=== PATIENT | female | born 1930 | race Caucasian/White ===

== ENCOUNTER 2017-04-25 07:57 | Inpatient (IN) | payer OTHER ==
[2017-04-25] VITALS (11 sets, daily range): BP systolic 125–183; BP diastolic 54–90
[~2017-04-25] VITALS: Ht 167.6 cm; Wt 70.8 kg
[~2017-04-25 07:57] MED LIST: ACETAMINOPHEN650 M5; ADULT ONE DAI200 MCG PO; ASPIRIN EC81 M1 PO; CARVEDILOL6.25 MG; CIPROFLOXACIN500 M1 PO; CO Q-1010 MG; CO Q-10100 MG PO; COMPAZINE10 M1 PO; CRESTOR5 MG PO; FIBERCON625 M1 PO; FISH OIL PO; FLAGYL500 MG PO; HYDROCODON-ACE1 EA11 PO; LASIX 20 MG TAB20 MG; NEUROPATHY SUPPORT PO; NIASPAN 500 MG500 M1 PO; NITROGLYCERIN0.4 MG PO; PLAVIX 75 MG TA75 M1 PO; SYNTHROID88 MCG PO; TOPROL XL25 MG; VITAMIN D PO; VITAMIN D1000 UNI1 PO; VITAMIN E PO; VITAMIND; ZOFRAN ODT4 MG SUBLING
[2017-04-25] MEDS ORDERED: CARVEDILOL6.25 MG (08:14)
[2017-04-25 08:32] LABS: ABSOLUTE BASOPHILS 0.1 thou/uL (0.0-0.2); ABSOLUTE EOSINOPHILS 0.3 thou/uL (0.0-0.7); ABSOLUTE LYMPHOCYTES 1.1 thou/uL (0.8-5.3); ABSOLUTE MONOCYTES 0.5 thou/uL (0.0-1.2); ABSOLUTE NEUTROPHILS 3.6 thou/uL (1.6-8.1); EOSINOPHILS 5.9 %; HEMATOCRIT 42.2 % (37.0-47.0); HEMOGLOBIN 14.1 gm/dL (12.0-15.0); LYMPHOCYTES 19.9 %; MCH 31.3 pg (26.0-34.0); MCHC 33.4 g/dL (28.0-37.0); MCV 93.8 fL (80.0-100.0); MONOCYTES 9.5 %; MPV 8.9 fl. (7.2-11.1); NUCLEATED RBCS 0 /100WBC; PLATELET COUNT* 269 thou/uL (150-400); POLYS 63.7 %; RDW-CV 14.5 % (10.5-14.5); WBC 5.7 thou/uL (4.0-11.0)
[2017-04-25 08:43] LABS: ANION GAP 6 mmol/L (7-16); BUN 21 mg/dL (7-18); CALCIUM 9.6 mg/dL (8.5-10.1); CHLORIDE 107 mmol/L (98-107); CO2 30 mmol/L (21-32); CREATININE 1.4 mg/dL (0.6-1.3); GLUCOSE 101 mg/dL (70-99); SODIUM 143 mmol/L (136-145)
[2017-04-25 08:56] LABS: ALBUMIN 3.6 g/dL (3.4-5.0); ALKALINE PHOSPHATASE 100 U/L (46-116); NT-PRO BRAIN NAT PEPTIDE 743 pg/mL (<300); SGOT 20 U/L (15-37); SGPT 26 U/L (30-65); TOTAL BILIRUBIN 0.5 mg/dL (<0.1-1.0); TOTAL PROTEIN 6.6 g/dL (6.4-8.2); TROPONIN-I LEVEL <0.06 ng/mL (<0.06)
[2017-04-25 12:42] LABS: CHOLESTEROL 241 mg/dL (<200); HDL CHOLESTEROL 61 mg/dL (>40); LDL CHOLESTEROL 148 mg/dL (<100); TRIGLYCERIDE 163 mg/dL (<150); VLDL 33 mg/dL (<40)
[2017-04-25 12:43] LABS: SERUM ASSESSMENT Clear
--- NOTE | 2017-04-25 18:52 | NUR ---
VSS, ASSUMED CARE OF FROM PLANT OPERATIONS COORDINATOR, ASSESSMENT PERFORMED AND CHARTED, FALL PRECAUTION IN PLACE AND CATH SITE IN RIGHT GRION HAS DRY BLOOD BUT NO NOTED HEMOTOMA, PT IS TRACING SB ON THE MONITOR, PT IS ON RA AND CAN GET UP AT 1915. WILL FOLLOW WITH PLAN OF CARE.
[2017-04-26] VITALS: BP 104/56
--- NOTE | 2017-04-26 03:34 | NUR ---
PT A/OX4, SB WITH 1D, RA, R-GROIN CATH SITE FREE FROM ACTIVE BLEEDING/SWELLING/HEMATOMA; LINE DRAWN ON DRESSING FOR MONITORING DRESSING NOTED LIGHT PINK COLOR TO GAUZE WHICH DAY RN STATED HAD NOT CHANGED SINCE HE REC PT FROM PSYCHOLOGY DEPARTMENT CHAIR, DAY-RN STATED POST CATH-VS ARE COMPLETED, UP SBA TO BATHROOM AFTER BEDREST LIFTED AFTER 1930, PT REPORTED NO SOA, PAIN TREATED X1 FOR CHRONIC NECK PAIN, 0300 EKG COMPLETED PER ORDERS, FALL PRECAUTIONS IN PLACE, PT USING CALL LIGHT TO VOICE NEEDS, MEDS/ASSESSMENT PER CHARTING, HOURLY ROUNDING IN PLACE, VSS, WILL CONT TO MONITOR.
[2017-04-26 04:00] VITALS: BP 140/59
[2017-04-26 05:29] LABS: HEMOGLOBIN 12.7 gm/dL (12.0-15.0); MCHC 32.6 g/dL (28.0-37.0); MPV 9.1 fl. (7.2-11.1); RBC 4.11 mil/uL (4.20-5.00); RDW-CV 14.6 % (10.5-14.5); WBC 5.7 thou/uL (4.0-11.0)
[2017-04-26 06:01] LABS: CALCIUM 8.9 mg/dL (8.5-10.1); CREATININE 1.2 mg/dL (0.6-1.3); POTASSIUM 4.3 mmol/L (3.5-5.1); TROPONIN-I LEVEL 0.16 ng/mL (<0.06)
--- NOTE | 2017-04-26 07:25 | NUR ---
CHANGE OF SHIFT AND BEDSIDE REPORT GIVEN ASSUMED PATIENT CARE PATIENT SEEN AT BEDSIDE, ASLEEP
[2017-04-26 08:00] VITALS: BP 167/103
[2017-04-26 10:00] VITALS: BP 167/103
[2017-04-26 10:44] VITALS: BP 167/103
--- NOTE | 2017-04-26 14:00 | NUR ---
PATIENT REPORTS BLOOD AT R GROIN SITE BANDAID SATURATED WITH BLOOD AND PERIAREA COVERED WITH BLOOD, MODERATE AMT AREA CLEANED AND SM SPOT OF FRESH BLOOD OOZING FROM SITE PRESSURE HELD AND NEW 2X2 DRSG AND OPSITE APPLIED PATIENT SAID SHE HAD A COUGHING EPISODE EARLIER, INSTRUCTED TO HOLD SITE WITH PRESSURE IF SHE NEEDED TO COUGH AGAIN AND NOTIFY NURSE IF FURTHER BLEEDING HEART DR NOTIFIED AND WILL CONTINUE TO MONITOR DR RAI TO COME BY AND CHECK SITE AND PATIENT LATER IN THE DAY
--- NOTE | 2017-04-26 17:37 | EKG ---
[place] [address] ELECTROCARDIOGRAM REPORT Name: ALFREDA RAMSEY Room: [address] ADM IN M.R.#: [id number] Admission: 04/25/17 Attend Phys: Abel Guerrero MD Discharge: Date of : 32 Report #: [id number] THIS REPORT FOR: //name// [facility] ED Test Date: 2017-04-25 Test Time: 08:03:37 Pat Name: ALFREDA ROXY Department: Room: [facility] Gender: F Rehabilitation Psychologist: ROBERTH : 1930 Requested By: Kamron Vincent Order Number: [id number] Sylvester MD: Rm Rodriguez Measurements Intervals [place] Rate: 61 P: -77 NH: 276 QRS: -21 QRSD: 110 T: 44 QT: 441 QTc: 445 Interpretive Statements Sinus or ectopic atrial rhythm Prolonged NH interval Inferior infarct, old Anteroseptal infarct, age indeterminate Compared to ECG 11/09/2012 08:24:59 Ectopic atrial rhythm now present First degree AV block now present Sinus bradycardia no longer present Myocardial infarct finding still present Electronically Signed On 04-26-2017 17:37:07 CHIEF POWER DISPATCHER by Rm Rodriguez [email or web address] <ELECTRONICALLY SIGNED> By: Rm Rodriguez MD, FACC 04/26/17 1737 0803 0803 Rm Rodriguez MD, FACC /EPI
--- NOTE | 2017-04-26 17:40 | EKG ---
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28 : 1930 Requested By: Diana Carty Order Number: [id number] MD: Rm Rodriguez Measurements Intervals [place] Rate: 48 P: 57 CA: 238 QRS: 2 QRSD: 115 T: 89 QT: 435 QTc: 389 Interpretive Statements Sinus bradycardia Prolonged CA interval Nonspecific intraventricular conduction delay Inferior infarct, old Anteroseptal infarct, old Compared to ECG 11/09/2012 08:24:59 First degree AV block now present Intraventricular conduction delay now present Myocardial infarct finding still present Electronically Signed On 04-26-2017 17:40:17 APARTMENT RENTAL CLERK by Rm Rodriguez [email or web address] <ELECTRONICALLY SIGNED> By: Rm Rodriguez MD, FACC 04/26/17 1740 1445 1445 Rm Rodriguez MD, FAC /EPI
--- NOTE | 2017-04-26 17:43 | EKG ---
[place] [address] ELECTROCARDIOGRAM REPORT Name: ALFREDA RAMSEY Room: [address] ADM IN M.R.#: [id number] Admission: 04/25/17 Attend Phys: Abel Guerrero MD Discharge: Date of : 31 Report #: [id number] THIS REPORT FOR: //name// [facility] Test Date: 2017-04-26 Test Time: 02:58:41 Pat Name: ALFREDA PUTNavi Department: Room: [facility] Gender: F Customer Resource Specialist: KAT : 1930 Requested By: Kamron Vincent Order Number: [id number] Sylvester MD: Rm Rodriguez Measurements Intervals [place] Rate: 53 P: 0 NC: 304 QRS: 3 QRSD: 113 T: 74 QT: 470 QTc: 442 Interpretive Statements Sinus rhythm Prolonged NC interval Low voltage Anteroseptal infarct, age indeterminate Compared to ECG 11/09/2012 08:24:59 First degree AV block now present Sinus bradycardia no longer present Myocardial infarct finding still present Electronically Signed On 04-26-2017 17:43:06 SALES PERFORMANCE MANAGER by Rm Rodriguez [email or web address] <ELECTRONICALLY SIGNED> By: Rm Rodriguez MD, FACC 04/26/17 1743 0258 0258 Rm Rodriguez MD, [facility] /EPI
--- NOTE | 2017-04-26 18:21 | NUR ---
PATIENT DCD TO HOME IV AND HEART MONITOR REMOVED PERSONAL BELONGINGS RETURNED ASSISTED OUT VIA WC GOOD CONDITION TO WAITING CAR
--- NOTE | 2017-04-27 16:31 | D ---
[address] [address] DISCHARGE SUMMARY Name: ALFREDA RAMSEY Room: [address] IN M.R.#: [id number] Admission: 04/25/17 Attend Phys: Abel Guerrero MD Discharge: 04/26/17 Date of : 31 Report #: [id number] THIS REPORT FOR: //name// CC: Bryan Guerrero DATE OF SERVICE: 04/26/2017 FINAL DISCHARGE DIAGNOSES: 1. Unstable angina. 2. History of coronary artery disease, status post remote stenting of the right coronary artery. 3. Peripheral vascular disease. 4. Hypertension. 5. Hyperlipoproteinemia. PROCEDURES: 04/25/2017 -- left heart catheterization, selective coronary arteriography and percutaneous coronary intervention with deployment of 2 drug-eluting stents at the sites of 90% proximal and 75% mid right coronary stenosis with 10% residual narrowing following stent deployment. The patient is a very pleasant active 86-year-old female who presented with recurrent chest pain suggestive of her prior anginal syndrome. She is several years status post stenting of the right coronary artery. There is underlying hypertension, hyperlipoproteinemia, peripheral vascular disease and a mild myopathy. She underwent cardiac catheterization on 04/25/2017, which revealed sequential 90% and 75% proximal and mid right coronary stenoses. I then deployed 2 drug-eluting stents at those sites respectively with 10% residual narrowing following stent deployment and TERRENCE 3 flow of the distal vessel. The patient did well postprocedurally, and there was good hemostasis at the right femoral site of catheterization. She ambulated in the hallways without difficulty. The patient was discharged to home on the following medications: Aspirin 81 mg daily, FiberCon 625 mg daily, carvedilol 6.25 mg b.i.d., Plavix 75 mg daily with 600 mg dose given periprocedurally, hydrocodone/acetaminophen 1 tablet as needed for pain, L-Thyroxine 88 mcg daily, multivitamin and folic acid daily, niacin 500 mg b.i.d., p.r.n. sublingual nitroglycerin, fish oil 1 capsule daily, Coenzyme Q10 at 100 mg daily, vitamin E 1 tablet daily, Neuropathy Support 2 [place] [address] DISCHARGE SUMMARY Name: ALFREDA RAMSEY Room: [address]#: [id number] Admission: 04/25/17 Attend Phys: Abel Guerrero MD Discharge: 04/26/17 Date of : 31 Report #: [id number] The patient is scheduled to return to see me in the office on 05/18/2017 at 10:20. <ELECTRONICALLY SIGNED> By: Kamron Vincent MD, [facility] 04/27/17 1631 1745 1911Jolucio Vincent MD, FACC /nt
--- NOTE | 2017-04-29 11:20 | CARD ---
[address] [address] CARDIAC CATH REPORT Name: ROXYALFREDA M Room: [address] IN ..#: [id number] Admission: 04/25/17 Attend Phys: Abel Guerrero MD Discharge: 04/26/17 Date of : 31 Report #: [id number] THIS REPORT FOR: //name// APPROVED REPORT Patient Details Patient Status: ED Room #: The patient is a 86 year-old female Event Personnel Kamron Vincent Powder Mill Operator, Rani De Anda RN Classroom Teacher, Carlos Alvares (R) Monitor, Venita Barcenas Scrub Procedures Performed GUDELIA Place w/wo Plasty Single RCA left heart catheterization left ventriculography and selective coronary arteriography Indication Unstable angina Previous Procedures/Diagnoses Previous PCI, Previous SC Admission/Lab Medications/Medications given during procedure Aspirin, Platelet Aff. Inhib., Angiomax bolus and infusion Procedure Narrative The patient was brought electively to the Cardiac Catheterization Laboratory and was prepped and draped in a sterile manner. The right femoral was infiltrated with 1% Lidocaine subcutaneous anesthesia. A [place] 6 FR sheath was inserted into the Right Femoral Artery. Coronary angiography was performed using coronary diagnostic catheters. The right coronary system was accessed and visualized with a Diagnostic JR4 catheter. The left coronary system was accessed and visualized with a Diagnostic JL4 catheter. The left ventricle was accessed and visualized with a Diagnostic Straight Pig catheter. Left ventricular/Aortic Valve gradient assessed . Left ventriculogram was performed in LEWIS projection. Pre-demployment femoral angiogram was performed . Closure device was deployed with a 6 Fr Angioseal. The patient tolerated the procedure well and there were no complications associated with the procedure[place] [address] CARDIAC CATH REPORT Name: ALFREDA RAMSEY Room: [address]#: [id number] Admission: 04/25/17 Attend Phys: Abel Guerrero MD Discharge: 04/26/17 Date of : 31 Report #: [id number] Sedation start time: 13:16 Case end Time: 14:17 Versed 2 mg Fluoro Time: 13.8 minutes Dose: DAP 15447 cGycm2 1275 mGy Contrast Type and Amount: Visipaque 240 ml Coronary Angiography The patient's coronary anatomy is right dominant. Diagnostic Cath Left Main 0% narrowing LAD 75% proximal and 80% mid LAD in-stent restenosis Circumflex 30% mid vessel narrowing Right Coronary 90% proximal and 70% mid right coronary stenosis, this being a dominant vessel Left Ventriculography The left ventricular ejection fraction is estimated to be 40%. Left ventricular wall motion abnormalities are present. There is no mitral insufficiency. Left ventriculography revealed anteroapical akinesis with an estimated ejection fraction of 40% IVUS Intravascular Ultrasound was performed on the proximal right coronary artery vessel. IVUS Findings NC Trek RX 2.75 X 8 Hemodynamics The aortic pressure is 168/77 mmHg with a mean of 113 mmHg. The left ventricular pressure is 164/-2 mmHg with a mean of mmHg. The left ventricular end diastolic pressure is 10 mmHg. PCI Technique Lesion Anticoagulation was achieved with Angiomax. Patient was preloaded with Angiomax IV 10 ml. Percutaneous coronary intervention was performed on the proximal right coronary artery. The lesion stenosis prior to intervention was 90% with TERRENCE 3 flow. A 6F JR 4.0 Guide Catheter was used to engage the ostium. A IG: ProwaterFlex 180CM Interventional Guidewire was used to cross the lesion. BALLOON DILATION A Balloon catheter Trek RX 2.5 X 12 [place] [address] CARDIAC CATH REPORT Name: ALFREDA RAMSEY Room: [address]#: [id number] Admission: 04/25/17 Attend Phys: Abel Guerrero MD Discharge: 04/26/17 Date of : 31 Report #: [id number] 14.00atm for 16seconds. STENT DEPLOYMENT A drug-eluting stent Xience Alpine RX 2.75X12 was inserted and inflated up to 12.00atm for 16seconds. Additional Inflation: 16.00atm for 11seconds. Final angiography reveals 10 % stenosis with TERRENCE 3 flow. PCI Technique Lesion Percutaneous coronary intervention was performed on the proximal right coronary artery. BALLOON DILATION A Balloon catheter NC Trek RX 2.75 X 8 was inserted and inflated up to 14.00atm for 15seconds. Additional Inflation: 18.00atm for 12seconds. STENT DEPLOYMENT A drug-eluting stent Xience Alpine RX 3.0 X 12 was inserted and inflated up to 12.00atm for 12seconds. Additional Inflation: 16.00atm for 13seconds. Additional Inflation: 16.00atm for 11seconds. POST STENT DEPLOYMENT BALLOON DILATION A Balloon catheter NC Trek RX 3.0 X 12 was inserted and inflated up to 16.00atm for 11seconds. Additional Inflation: 17.00atm for 13seconds. Additional Inflation: 18.00atm for 11seconds. PCI Technique Lesion 2 Percutaneous Coronary Intervention was performed on the mid right coronary artery. The lesion stenosis prior to intervention was 75% with TERRENCE 3 flow. Stent Deployment A drug-eluting stent Xience Alpine RX 3.0 X 12 was inserted and inflated up to 18atm for 15seconds. Final angiography reveals 10 % stenosis with TERRENCE 3 flow. Conclusion #1 significant coronary artery disease characterized by the following: A 75% proximal and 80% mid LAD stenoses, the latter within a stent, [place] [address] CARDIAC CATH REPORT Name: ALFREDA RAMSEY Room: [address] IN [facility].#: [id number] Admission: 04/25/17 Attend Phys: Abel Guerrero MD Discharge: 04/26/17 Date of : 31 Report #: [id number] B 30 % narrowing of the midportion the nondominant circumflex, C dominant right coronary artery with tandem 90% proximal and 75% mid vessel stenosis #2 mild systemic systolic hypertension #3 successful percutaneous coronary intervention with deployment of sequential drug-eluting stents at the sites of 90% proximal and 75% mid right coronary stenosis with 10% residual narrowing at both sites following stent deployment and TERRENCE-3 flow the distal vessel. #4 moderate reduction in global left ventricular systolic function, estimated ejection fraction of 40% with anteroapical akinesis. Recommendations Cardiac Risk Reduction Program Aggressive Medical Therapy Medications Administered Aspirin (any) <ELECTRONICALLY SIGNED> By: Kamron Vincent MD, FACC 04/29/17 1120 1120 1120Jolucio Vincent MD, FACC /INF
== END 2017-04-26 18:20 | disposition home or self-care (01) | DRG 247 ==
LOC: M.ERS 07:57 → M.2W 10:11 → M.TBA-ER 10:11 → M.2W 17:35
PROVIDERS: Internal Medicine; Personal Emergency Response Attendant; ADMIT Internal Medicine
PROC: 027035Z Dilation of Coronary Artery, One Artery with Two Drug-eluting Intraluminal Devices, Percutaneous Approach (ICD-10-PCS; principal; 2017-04-25)
PROC: 4A023N7 Measurement of Cardiac Sampling and Pressure, Left Heart, Percutaneous Approach (ICD-10-PCS; principal; 2017-04-25)
PROC: B2151ZZ Fluoroscopy of Left Heart using Low Osmolar Contrast (ICD-10-PCS; principal; 2017-04-25)
PROC: B2111ZZ Fluoroscopy of Multiple Coronary Arteries using Low Osmolar Contrast (ICD-10-PCS; principal; 2017-04-25)
DX: I25.110 Atherosclerotic heart disease of native coronary artery with unstable angina pectoris (principal); I50.32 Chronic diastolic (congestive) heart failure; I13.0 Hypertensive heart and chronic kidney disease with heart failure and stage 1 through stage 4 chronic kidney disease, or unspecified chronic kidney disease; I50.22 Chronic systolic (congestive) heart failure; J98.11 Atelectasis; I73.9 Peripheral vascular disease, unspecified; E78.5 Hyperlipidemia, unspecified; M19.90 Unspecified osteoarthritis, unspecified site; E03.9 Hypothyroidism, unspecified; N18.3 Chronic kidney disease, stage 3 (moderate); M79.7 Fibromyalgia; Z88.8 Allergy status to other drugs, medicaments and biological substances; Z79.899 Other long term (current) drug therapy

== ENCOUNTER 2017-07-03 12:44 | Inpatient (IN) | payer OTHER ==
[~2017-07-03] VITALS: Ht 167.6 cm; Wt 64.9 kg
[2017-07-03 12:48] VITALS: BP 157/64
[2017-07-03] MEDS ORDERED: MAG GLYCINATE100 MG PO (13:13)
[2017-07-03] MEDS ORDERED: IMDUR 30 MG TAB30 M1 PO (13:13)
[2017-07-03 13:14] LABS: ABSOLUTE BASOPHILS 0.1 thou/uL (0.0-0.2); ABSOLUTE EOSINOPHILS 0.2 thou/uL (0.0-0.7); ABSOLUTE LYMPHOCYTES 1.7 thou/uL (0.8-5.3); ABSOLUTE MONOCYTES 0.6 thou/uL (0.0-1.2); BASOPHILS 1.2 %; HEMATOCRIT 44.2 % (37.0-47.0); HEMOGLOBIN 14.7 gm/dL (12.0-15.0); LYMPHOCYTES 29.9 %; MCHC 33.2 g/dL (28.0-37.0); MCV 93.4 fL (80.0-100.0); MONOCYTES 10.8 %; MPV 8.6 fl. (7.2-11.1); NUCLEATED RBCS 0 /100WBC; PLATELET COUNT* 247 thou/uL (150-400); POLYS 54.1 %; RBC 4.73 mil/uL (4.20-5.00); RDW-CV 13.3 % (10.5-14.5); WBC 5.6 thou/uL (4.0-11.0)
[2017-07-03] MEDS ORDERED: STOOL SOFT-STI1 EACH PO (13:14)
[2017-07-03] MEDS ORDERED: PROBIOTIC1 EAC1 PO (13:14)
[2017-07-03] MEDS ORDERED: FIBER CHOICE C1.5 G1 PO (13:15)
[2017-07-03 13:25] LABS: ANION GAP 4 mmol/L (7-16); BUN 21 mg/dL (7-18); CALCIUM 9.7 mg/dL (8.5-10.1); CHLORIDE 106 mmol/L (98-107); CO2 33 mmol/L (21-32); CREATININE 1.2 mg/dL (0.6-1.3); GLUCOSE 72 mg/dL (70-99); SODIUM 143 mmol/L (136-145)
[2017-07-03 13:27] LABS: APTT 27.1 Seconds (25.0-31.3); INR 1.1; PROTIME 11.1 Seconds (9.20-11.50)
[2017-07-03 13:36] LABS: ALBUMIN 3.5 g/dL (3.4-5.0); ALKALINE PHOSPHATASE 83 U/L (46-116); LIPASE 76 U/L (73-393); NT-PRO BRAIN NAT PEPTIDE 1028 pg/mL (<300); SGOT 18 U/L (15-37); SGPT 21 U/L (30-65); TOTAL BILIRUBIN 0.4 mg/dL (<0.1-1.0); TOTAL PROTEIN 6.5 g/dL (6.4-8.2); TROPONIN-I LEVEL <0.06 ng/mL (<0.06)
--- NOTE | 2017-07-03 13:59 | NUR ---
PT GIVEN APPLESAUCE AT THIS TIME PER REQUEST. EXPLAINED THE WAIT TIMES TO GET MOVED UP TO THE FLOOR FOR ADMIT. PT VERBALIZED UNDERSTANDING
[2017-07-03 15:54] VITALS: BP 128/71
[2017-07-03 16:11] VITALS: BP 138/80
--- NOTE | 2017-07-03 17:25 | NUR ---
PT ADMITTED TO UNIT AROUND 1700 PT IS ALERT AND ORIENTED X 4 PT DENIES CHEST PAIN PT STATES SHE HAS SLIGHT SOA AFTER WALKING NOT NOTICEABLE, PT IS UP AD JUN PT IS NOT A FALL RISK, PT HAS CARDIOLOGY CONSULT CALLED PHYSICIAN AND OBTAINED DIET ORDER PT WILL BE NPO AT MIDNIGHT PENDING CARDIOLOGY CONSULT, PT IS ON RA, PT IS SR PAC ON THE MONITOR, WILL CONTINUE TO MONITOR
[2017-07-03 20:00] VITALS: BP 113/73
[2017-07-04] VITALS (18 sets, daily range): BP systolic 92–162; BP diastolic 45–74
--- NOTE | 2017-07-04 04:41 | NUR ---
PT ALERT ORIENTED. UP AD JUN IN ROOM. TELEMETRY SHOWS SR PACS. PT STATED SHE HAD PAIN CHRONIC FOR 20+ YRS IN NECK AND LEGS. DR LUNDBERG NOTIFIED. HYDROCODONE ORDERED. TOWEL ROLLED UP FOR SUPPORT OF NECK. PT STATED SHE COULD NOT SLEEP AT 0230. DR LUNDBERG NOTIFIED ORDER FOR TEMAZEPAM OBTAINED AND GIVEN. BED ALARM ON. PT RESTING QUIETLY.
--- NOTE | 2017-07-04 05:46 | NUR ---
NPO SINCE [place] EXCEPT FOR SIPS WITH MEDS.
[2017-07-04 07:00] LABS: ABSOLUTE EOSINOPHILS 0.2 thou/uL (0.0-0.7); ABSOLUTE LYMPHOCYTES 1.5 thou/uL (0.8-5.3); ABSOLUTE MONOCYTES 0.4 thou/uL (0.0-1.2); ABSOLUTE NEUTROPHILS 2.3 thou/uL (1.6-8.1); EOSINOPHILS 4.5 %; HEMATOCRIT 42.7 % (37.0-47.0); HEMOGLOBIN 14.4 gm/dL (12.0-15.0); LYMPHOCYTES 33.4 %; MCH 31.5 pg (26.0-34.0); MCHC 33.7 g/dL (28.0-37.0); MCV 93.3 fL (80.0-100.0); MONOCYTES 9.9 %; MPV 8.2 fl. (7.2-11.1); NUCLEATED RBCS 0 /100WBC; PLATELET COUNT* 217 thou/uL (150-400); POLYS 51.2 %; RBC 4.58 mil/uL (4.20-5.00); RDW-CV 13.4 % (10.5-14.5); WBC 4.5 thou/uL (4.0-11.0)
[2017-07-04 07:15] LABS: CALCIUM 9.6 mg/dL (8.5-10.1); CREATININE 1.2 mg/dL (0.6-1.3); POTASSIUM 4.4 mmol/L (3.5-5.1)
--- NOTE | 2017-07-04 08:00 | NUR ---
ASSUMED PT. CARE AND RECEIVED REPORT AT 0730. PT A/OX4, VSS, MONITOR ON TRACING SR 1ST PAC. PT. DENIES CURRENT CP, HOWEVER SHE HAD A 1-2 MINUTES EPSIDOE EARLIER THIS MORNING OF CP. C/O GENERALIZED CHRONIC FIBROMYALGIA PAIN. FULL ASSESSMENT COMPLETED, REFER TO CHARTING. PT. UP IN ROOM, STEADY ON FEET. KNIT GOODS WASHER KALE INTO SEE, ANTICIPATE CARDIAC CATH TODAY AFTER DR. RAI ASSESSES. PT. REMAINS NPO. WILL CONTINUE WITH PLAN OF CARE.
--- NOTE | 2017-07-04 12:19 | NUR ---
Pt out of the room, CM to f/u later
--- NOTE | 2017-07-04 14:46 | EKG ---
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 : 1930 Requested By: Diana Carty Order Number: [id number] MD: Kamron Vincent Measurements Intervals [place] Rate: 57 P: 42 CO: 217 QRS: -13 QRSD: 109 T: 81 QT: 444 QTc: 433 Interpretive Statements Sinus rhythm Atrial premature complexes Borderline prolonged [place] interval Inferior infarct, age indeterminate possible Anteroseptal infarct, age indeterminate Compared to ECG 04/26/2017 02:58:41 Atrial premature complex(es) now present Myocardial infarct finding still present Electronically Signed On 07-04-2017 14:46:31 CDT by Kamron Vincent [email or web address] <ELECTRONICALLY SIGNED> By: Kamron Vincent MD, FACC 07/04/17 1446 1250 1250 Kamron Vincent MD, FAC /EPI
--- NOTE | 2017-07-04 14:47 | EKG ---
[place] [address] ELECTROCARDIOGRAM REPORT Name: ALFREDA RAMSEY Room: [address] ADM IN M.R.#: [id number] Admission: 07/04/17 Attend Phys: Mejia Mejia MD Discharge: Date of : 31 Report #: [id number] THIS REPORT FOR: //name// [facility] ED Test Date: 2017-07-03 Test Time: 14:48:41 Pat Name: ALFREDA RIVASNavi Department: Room: [facility] Gender: F Global Regulatory Lead: LESLEY : 1930 Requested By: Diana Carty Order Number: [id number] MD: Kamron Vincent Measurements Intervals [place] Rate: 56 P: 28 NV: 241 QRS: -9 QRSD: 112 T: 94 QT: 432 QTc: 417 Interpretive Statements Sinus rhythm Atrial premature complexes Prolonged [place] interval Inferior infarct, old Anteroseptal infarct, age indeterminate Compared to ECG 04/26/2017 02:58:41 Atrial premature complex(es) now present Myocardial infarct finding still present Electronically Signed On 07-04-2017 14:47:36 CDT by Kamron Vincent [email or web address] <ELECTRONICALLY SIGNED> By: Kamron Vincent MD, FAC 07/04/17 1447 1448 1448 Kamron Vincent MD, FAC /EPI
--- NOTE | 2017-07-04 14:54 | EKG ---
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 : 1930 Requested By: Kamron Vincent Order Number: [id number] Sylvester MD: Kamron Vincent Measurements Intervals [place] Rate: 39 P: 40 NM: 234 QRS: -2 QRSD: 114 T: 98 QT: 518 QTc: 418 Interpretive Statements Sinus bradycardia Atrial premature complex Borderline prolonged [place] interval Inferior infarct, age indeterminate Probable anteroseptal infarct Compared to ECG 04/26/2017 02:58:41 Atrial premature complex(es) now present Sinus rhythm no longer present Myocardial infarct finding still present Electronically Signed On 07-04-2017 14:54:36 CDT by Kamron Vincent [email or web address] <ELECTRONICALLY SIGNED> By: Kamron Vincent MD, FAC 07/04/17 1454 1333 1333 Kamron Vincent MD, FACC /EPI
--- NOTE | 2017-07-04 15:17 | CARD ---
[address] [address] CARDIAC CATH REPORT Name: ALFREDA RAMSEY Room: [address] IN ..#: [id number] Admission: 07/04/17 Attend Phys: Mejia Mejia MD Discharge: Date of : 31 Report #: [id number] THIS REPORT FOR: //name// APPROVED REPORT Study performed: 07/04/2017 11:12:12 Patient Details Patient Status: In-Patient Room #: The patient is a 87 year-old female Event Personnel Kamron Vincent Career Specialist, Susan Parish Rock Picker, Venita Barcenas Monitor, Mari Guevara RTR Scrub, Rani De Anda RN Rock Picker Procedures Performed Art Access - R femoral artery* , Left Heart Catheterization, Selective Right and Left Coronary Angiography left heart catheterization, PTCA with Stenting Indication Unstable angina Risk Factors Hypercholesterolemia, Hypertension Previous Procedures/Diagnoses Previous PCI, Previous ND Admission/Lab Medications/Medications given during procedure Angiomax bolus and infusion Procedure Narrative The patient was brought electively to the Cardiac Catheterization Laboratory and was prepped and draped in a sterile manner. The right femoral was infiltrated with 1% Lidocaine subcutaneous anesthesia. A [place] 6 FR sheath was inserted into the right femoral artery. Coronary angiography was performed using coronary diagnostic catheters. The right coronary system was accessed and visualized with a Diagnostic 6fr JR 4 catheter. The left coronary system was accessed and visualized with a Diagnostic 6fr JL 4 catheter. The left ventricle was accessed and visualized with a Diagnostic pigtail catheter. Left ventricular/Aortic Valve gradient assessed via catheter pullback. Pre-demployment femoral [place] [address] CARDIAC CATH REPORT Name: ALFREDA RAMSEY Room: [address] IN [facility]#: [id number] Admission: 07/04/17 Attend Phys: Mejia Mejia MD Discharge: Date of : 31 Report #: [id number] Closure device was deployed with a 6 Fr Angioseal STS 6Fr. The patient tolerated the procedure well and there were no complications associated with the procedure. There was no hematoma. Intraoperative Conscious Sedation Sedation start time: 11:50 Case end Time: 12:50 Versed 1 mg Fluoro Time: 13.3 minutes Dose: DAP 004034 cGycm2 1542.35 mGy Contrast Type and Amount: Visipaque 280 ml Diagnostic Cath Left Main 0% narrowing LAD 80% tubular proximal stenosis with 90% mid vessel in-stent restenosis Circumflex 30% mid vessel narrowing Right Coronary Dominant vessel with widely patent proximal stents, 30% mid vessel narrowing and 50% narrowing of the midportion of the posterior descending branch Left Ventriculography Left Ventriculography was not performed. Hemodynamics The aortic pressure is 141/59 mmHg with a mean of mmHg. The left ventricular pressure is 117/0 mmHg with a mean of mmHg. The left ventricular end diastolic pressure is 6 mmHg. There was no gradient across the aortic valve upon pullback. PCI Technique Lesion Anticoagulation was achieved with Angiomax. Percutaneous coronary intervention was performed on the mid left anterior descending artery segment. The lesion stenosis prior to intervention was 90% with TERRENCE 3 flow. A 6F XB LAD 3.5 Guide Catheter was used to engage the LCA ostium. A IG: ProwaterFlex 180CM Interventional Guidewire was used to cross the lesion. BALLOON DILATION A Balloon catheter Mini Trek RX 2.0 X 12 was inserted and inflated up to 14.00atm for 10seconds. Additional Inflation: 14.00atm for 14seconds. Additional Inflation: 14.00atm for 17seconds. 14 SANDY x 13 [place] [address] CARDIAC CATH REPORT Name: ALFREDA RAMSEY Room: [address]#: [id number] Admission: 07/04/17 Attend Phys: Mejia Mejia MD Discharge: Date of : 31 Report #: [id number] A drug-eluting stent Xience Alpine RX 2.25X23 was inserted and inflated up to 6.00atm for 14seconds. Additional Inflation: 8.00atm for 9seconds. Additional Inflation: 10.00atm for 13seconds. Final angiography reveals 10 % stenosis with TERRENCE 3 flow. PCI Technique Lesion 2 Percutaneous Coronary Intervention was performed on the proximal left anterior descending artery segment. The lesion stenosis prior to intervention was 80% with TERRENCE 3 flow. A 6F XB LAD 3.5 Guide Catheter was used to engage the LCA ostium. A IG: ProwaterFlex 180CM Interventional Guidewire was used to cross the lesion. Balloon Dilation A Balloon catheter NC Trek RX 2.75X15 was inserted and inflated up to 14.00atm for 10seconds. Repeat angiography revealed the following post-dilatation results: 30% narrowing. Additional Inflation: 15.00atm for 10seconds. Stent Deployment A drug-eluting stent Xience Alpine RX 2.75X28 was inserted and inflated up to 12.00atm for 9seconds. Additional Inflation: 15.00atm for 18seconds. Post Stent Deployment Balloon Dilation A Balloon catheter NC Trek RX 2.75 X 12 was inserted and inflated up to 16.00atm for 9seconds. Additional Inflation: 15.00atm for 13seconds. Additional Inflation: 17atm for 9seconds. Final angiography reveals 10 % stenosis with TERRENCE 3 flow. PCI Technique Lesion 4 Percutaneous Coronary Intervention was performed on the proximal left anterior descending artery segment. Conclusion #1 significant multivessel coronary artery disease characterized by the following: A 80% tubular proximal and 90% mid vessel in-stent restenosis of the left anterior descending coronary artery B 30% narrowing of the midportion of the nondominant circumflex C large dominant right coronary artery with widely patent proximal stents 30% mid vessel narrowing 40% distal narrowing and 50% [place] [address] CARDIAC CATH REPORT Name: ALFREDA RAMSEY Room: [address] IN M.R.#: [id number] Admission: 07/04/17 Attend Phys: Mejia Mejia MD Discharge: Date of : 31 Report #: [id number] narrowing of one of the posterior descending branches of the distal right coronary artery #2 normal left-sided hemodynamics study #3 successful percutaneous coronary intervention with deployment of sequential drug-eluting stents at the sites of 80% proximal and 90% mid LAD stenosis with 10% residual narrowing at both sites following stent deployment and TERRENCE-3 flow to the distal vessel. Recommendations Daily ASA with Plavix for at least one year Aggressive Medical Therapy Medications Administered Clopidogrel Diagnostic Cath Approved by: Kamron Vincent MD Date/Time: 07/04/17 at 1515 hrs. <ELECTRONICALLY SIGNED> By: Kamron Vincent MD, FAC 07/04/17 1516 151 1516Kamron Vincent MD, FACC /INF
--- NOTE | 2017-07-04 18:49 | NUR ---
PT. COMPLETED CARDIAC CATH WITH 2 STENTS PLACED. RETURNED TO ROOM AT APPROX. 1330. PT. HAD IRREGULAR JOSELIN RHYTHM UPON RETURN TO UNIT. DR. RAI NOTIFIED, PT. DID SIMILAR DURING THE CATH WELL. EKG OBTAINED AND DR. RAI UP TO ROOM TO ASSESS. NO NEW ORDERS AT THIS TIME, JUST TO MONITOR. PT. RHYTHM RANGED FROM 32-80'S FOR FIRST FEW HOURS AFTER RECOVERY BEFORE LEVELING OUT IN MID 80'S AND STAYING THERE. PT. CURRENTLY UP IN ROOM AD JUN, TOLERATING ACTIVITY WELL. RIGHT GROIN DRESSING REMAINS C/D/I. IVF'S INFUSING PER ORDERS. HOURLY ROUNDING COMPLETED THROUGH OUT THE DAY FOR PT. SAFETY.
[2017-07-05] VITALS (7 sets, daily range): BP systolic 92–172; BP diastolic 51–84
[2017-07-05 05:30] LABS: HEMATOCRIT 40.4 % (37.0-47.0); HEMOGLOBIN 13.6 gm/dL (12.0-15.0); MCH 30.9 pg (26.0-34.0); MCHC 33.5 g/dL (28.0-37.0); MCV 92.3 fL (80.0-100.0); MPV 9.1 fl. (7.2-11.1); RBC 4.38 mil/uL (4.20-5.00); RDW-CV 13.6 % (10.5-14.5)
--- NOTE | 2017-07-05 05:40 | NUR ---
PT CARE ASSUMED AFTER REPORT. ASSESSMENT COMPLETE. SR/1ST DEGREE ON MONITOR. IVF INFUSING. PRN PAIN MEDICAION GIVEN PER PT REQUEST WITH ADEQUATE RELIEF. UP AD JUN WITH STEADY GAIT. R GROIN CATH SITE DRESSING C/D/I. NO HEMATOMA OR BRUISING NOTED. CALL LIGHT IN REACH. BED IN LOWEST POSITION. PROGRESSING TOWARDS GOLAS.
[2017-07-05 05:51] LABS: ALBUMIN 3.1 g/dL (3.4-5.0); ALKALINE PHOSPHATASE 68 U/L (46-116); ANION GAP 7 mmol/L (7-16); BUN 16 mg/dL (7-18); CALCIUM 8.9 mg/dL (8.5-10.1); CHLORIDE 107 mmol/L (98-107); CHOLESTEROL 208 mg/dL (<200); CO2 27 mmol/L (21-32); CREATININE 1.1 mg/dL (0.6-1.3); GLUCOSE 95 mg/dL (70-99); HDL CHOLESTEROL 54 mg/dL (>40); LDL CHOLESTEROL 130 mg/dL (<100); POTASSIUM 3.9 mmol/L (3.5-5.1); SGOT 28 U/L (15-37); SGPT 19 U/L (30-65); SODIUM 141 mmol/L (136-145); TC:HDL 3.9 Ratio (Not establshd); TOTAL BILIRUBIN 0.6 mg/dL (<0.1-1.0); TOTAL PROTEIN 5.4 g/dL (6.4-8.2); TRIGLYCERIDE 120 mg/dL (<150); VLDL 24 mg/dL (<40)
[2017-07-05 05:55] LABS: SERUM ASSESSMENT Clear
[2017-07-05 05:56] LABS: TROPONIN-I LEVEL 1.85 ng/mL (<0.06)
--- NOTE | 2017-07-05 10:36 | NUR ---
RECEIVED REPORT. ASSUMED CARE OF PT AT 0730. PT A&OX4, LOOKING FORWARD TO GOING HOME TODAY. VSS. O2 SAT 98% ON RA. MEDICATION COORDINATOR IN PLACE TRACING SR WITH 1ST DEGREE AV BLOCK AND PAC'S. AM ASSESSMENT AND VITALS COMPLETED CHARTED. PT DENIES CHEST PAIN. PT REPORTS NECK AND BACK PAIN AT 04/20 - PT STATES "I ALWAYS HURT, I HAVE FIBROMYALGIA". PT REFUSING PAIN MEDICATION AT THIS TIME, STATES SHE WILL NOTIFY NURSE WHEN SHE NEEDS PAIN MEDS. IV PATENT AND INFUSING IVF. PT EATING AND DRINKING WITHOUT ISSUE. RIGHT GROIN CATH SITE SOFT, NON-TENDER; DRESSING REMOVED BY CARDIOLOGY NURSE AND REPLACED WITH BANDAID. PLAN IS TO DC THIS AFTERNOON. PT INFORMED OF PLAN - COMMUNICATES UNDERSTANDING. LOW FALL PRECAUTIONS ARE IN PLACE. CALL LIGHT IS WITHIN REACH, WCTM. ALL NEEDS MET AT THIS TIME.
--- NOTE | 2017-07-05 13:44 | NUR ---
DISCHARGE ORDERS RECIEVED. DISCHARGE COMPLETED DOCUMENTED. DISCHARGE SUMMARY AND CARE NOTES GONE OVER WITH PT. PT COMMUNICATES UNDERSTANDING. SCRIPT GIVEN. IV AND MONEY LAUNDERING INVESTIGATOR REMOVED. ALL BELONGINGS GATHERED AND SENT WITH THE PT. VSS AT TIME OF DC. PT EATING AND DRINKING WITHOUT ISSUE. PT LEFT UNIT IN WC WITH NURSING STAFF. PT LEFT HOSPITAL IN CAR WITH DAUGHTER.
--- NOTE | 2017-07-05 15:04 | CON ---
[address] [address] CONSULTATION Name: ALFREDA RAMSEY Room: [address] IN M.R.#: [id number] Admission: 07/04/17 Attend Phys: Mejia Mejia MD Discharge: 07/05/17 Date of : 31 Report #: [id number] THIS REPORT FOR: //name// CC: Mejia Gautam [place] DATE OF SERVICE: 07/04/2017 LOCATION: The patient in room 203. HISTORY OF PRESENT ILLNESS: The patient is a very pleasant 87-year-old female with complex coronary disease, status post stenting of the right coronary artery in April. Recently, she has noted recrudescence of dyspnea and chest fullness or tightness with exertion. She was noted to have a moderately severe mid LAD lesion at that time, which was not approached in the initial setting. The symptoms have been progressive over the last 2 weeks with increased dyspnea and chest tightness, compatible with a pattern of ischemia, which is unstable. MEDICATIONS: Have included aspirin 81 mg daily, clopidogrel 75 mg daily, calcium, vitamin D, nonspecific analgesic agents, p.r.n. sublingual nitroglycerin, L-thyroxine, niacin, multivitamins, isosorbide 30 mg daily, and magnesium. PAST MEDICAL HISTORY: Remarkable for hypothyroidism, arthritis, coronary disease, and mild renal insufficiency. SOCIAL HISTORY: The patient is a nonsmoker. REVIEW OF SYSTEMS: Remarkable for the following: CARDIAC: She notes chest discomfort and dyspnea, latter occurring more frequently with less activity. MUSCULOSKELETAL: She notes mild arthritic complaints. Remainder is unremarkable. PHYSICAL EXAMINATION: GENERAL: Reveals an alert, elderly female, in no acute distress. VITAL SIGNS: Blood pressure 130/70. The pulse rate is 74. Respirations are 18 per minute. NECK: Jugular venous pressure is normal. Carotids are 1-2+. CHEST: Clear. CARDIOVASCULAR: Reveals normal first and second heart sounds with a soft systolic ejection type murmur. ABDOMEN: Soft. EXTREMITIES: Without edema with intact femoral, [place] [address] CONSULTATION Name: ALFREDA RAMSEY Room: [address] IN [facility].#: [id number] Admission: 07/04/17 Attend Phys: Mejia Mejia MD Discharge: 07/05/17 Date of : 31 Report #: [id number] LABORATORY DATA: EKG reveals sinus bradycardia, first-degree AV block, possible anteroseptal scar and nonspecific ST-T alterations. IMPRESSION: 1. Coronary artery disease, status post remote anteroapical infarction and more recent percutaneous coronary intervention to the right coronary artery. 2. Multivessel coronary disease as defined in 04/2017. 3. Hypothyroidism. 4. Mild arthritic complaints. 5. History of mild renal insufficiency. RECOMMENDATIONS: Given the aforementioned clinical scenario with an increase in dyspnea and chest tightness of late, I would recommend recatheterization with attention to the previously stented right coronary artery in the mid and distal LAD, which were not approached in 04/2017. This has been discussed with the patient and we will plan to proceed with cardiac catheterization on 07/04/2017. <ELECTRONICALLY SIGNED> By: Kamron Vincent MD, [facility] 07/05/17 1504 0939 [id number] Vincent MD, FACC /nt
--- NOTE | 2017-07-05 15:05 | D ---
[address] [address] DISCHARGE SUMMARY Name: ALFREDA RAMSEY Room: [address] IN M.R.#: [id number] Admission: 07/04/17 Attend Phys: Mejia Mejia MD Discharge: 07/05/17 Date of : 31 Report #: [id number] THIS REPORT FOR: //name// CC: Mejia Gautam [place] DATE OF SERVICE: 07/05/2017 FINAL DISCHARGE DIAGNOSES: 1. Unstable angina. 2. Coronary artery disease status post remote myocardial infarction. 3. Status post stenting of the right coronary artery in April with stenting of the left anterior descending on 07/04/2017. 4. History of mild renal insufficiency. 5. Degenerative joint disease. PROCEDURES: 07/04/2017-left heart catheterization, selective coronary arteriography, and percutaneous coronary intervention with deployment of two drug-eluting stents in the proximal and mid left anterior descending coronary artery. The patient is a very pleasant 87-year-old female with history of coronary artery disease and remote anteroapical infarction. In April, she presented with unstable angina and I placed two drug-eluting stents in the proximal right coronary artery with a good angiographic result. She had done well until several weeks ago when she began to note recurrence of chest pain similar to her prior ischemic syndrome with an increase in frequency and severity with concomitant dyspnea. In this setting, I elected to perform recatheterization on 07/04/2017, which revealed widely patent right coronary artery stents. She had the previously demonstrated 80% proximal and 90% mid LAD stenosis, the latter being in-stent restenosis. I deployed 2 drug-eluting stents, one 2.75 x 28 mm Xience Alpine in the proximal LAD and a 2.25 x 23 Xience Alpine drug-eluting stent in the mid LAD with 10% residual narrowing at both sites following stent deployment. The patient had transitory slow flow in the seed laboratory technician with confucianist of TERRENCE 3 flow by the end with a minimal increase in troponin to 1.85. Her pain was completely remitted by of the procedure and she ambulated in the hallways without difficulty with good hemostasis at the right femoral site of catheterization. Laboratory data on 07/05/2017, revealed a hemoglobin of 13.6, white blood cell count of 6000 with 209,000 platelets. Sodium 141, potassium 3.9, BUN 16, creatinine 1.1, and GFR 47. Troponin increased minimally [place] 1[place]85[place] [address] DISCHARGE SUMMARY Name: ALFREDA RAMSEY Roseline Room: [address] IN [facility].#: [id number] Admission: 07/04/17 Attend Phys: Mejia Mejia MD Discharge: 07/05/17 Date of : 31 Report #: [id number] The patient walked in the hallways without difficulty. She was given an additional dose of Plavix periprocedurally. The patient was discharged to home on the following medications: Aspirin 81 mg daily, FiberCon one tablet daily, cholecalciferol 1000 units daily, clopidogrel or Plavix 75 mg daily with additional 300 mg given periprocedurally, Imdur 15 mg daily, lactobacillus or probiotic one capsule daily, L-thyroxine 88 mcg daily, magnesium glycinate 400 mg b.i.d., one multivitamin tablet with folic acid daily, niacin 500 mg b.i.d., stool softener, Sennoside/docusate 1 tablet daily; Coenzyme Q10 100 mg daily, fish oil one tablet daily, p.r.n. sublingual nitroglycerin for recurrent chest discomfort. The patient is scheduled to return to see me in followup in 2 to 3 weeks. Thus, she is discharged to home in stable condition on the aforementioned medications with followup as iterated above. <ELECTRONICALLY SIGNED> By: Kamron Vincent MD, FACC 07/05/17 1505 0905 1013Jolucio Vincent MD, FAC /nt
--- NOTE | 2017-07-05 15:27 | EKG ---
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: : 1930 Requested By: Kamron Vincent Order Number: [id number] Sylvester MD: Rm Rodriguez Measurements Intervals [place] Rate: 79 P: 58 NE: 215 QRS: 1 QRSD: 113 T: 58 QT: 363 QTc: 417 Interpretive Statements Sinus arrhythmia Premature atrial complexes Borderline prolonged NE interval Anterior infarct, old Compared to ECG 07/04/2017 13:33:13 Sinus bradycardia no longer present Myocardial infarct finding still present Electronically Signed On 07-05-2017 15:27:13 CDT by Rm Rodriguez [email or web address] <ELECTRONICALLY SIGNED> By: Rm Rodriguez MD, FACC 07/05/17 1527 Rm Rodriguez MD, [facility] /EPI
== END 2017-07-05 13:37 | disposition home or self-care (01) | DRG 246 ==
LOC: M.ERS 12:44 → M.TBA-ER 14:17 → M.2W 16:06
PROVIDERS: Internal Medicine; Personal Emergency Response Attendant; ADMIT Internal Medicine
PROC: 4A023N7 Measurement of Cardiac Sampling and Pressure, Left Heart, Percutaneous Approach (ICD-10-PCS; principal; 2017-07-04)
PROC: B2111ZZ Fluoroscopy of Multiple Coronary Arteries using Low Osmolar Contrast (ICD-10-PCS; principal; 2017-07-04)
PROC: 027035Z Dilation of Coronary Artery, One Artery with Two Drug-eluting Intraluminal Devices, Percutaneous Approach (ICD-10-PCS; principal; 2017-07-04)
PROC: B2151ZZ Fluoroscopy of Left Heart using Low Osmolar Contrast (ICD-10-PCS; principal; 2017-07-04)
DX: T82.855A Stenosis of coronary artery stent, initial encounter (principal); I50.31 Acute diastolic (congestive) heart failure; I25.110 Atherosclerotic heart disease of native coronary artery with unstable angina pectoris; I13.0 Hypertensive heart and chronic kidney disease with heart failure and stage 1 through stage 4 chronic kidney disease, or unspecified chronic kidney disease; E03.9 Hypothyroidism, unspecified; M79.7 Fibromyalgia; M19.90 Unspecified osteoarthritis, unspecified site; N18.3 Chronic kidney disease, stage 3 (moderate); Z88.8 Allergy status to other drugs, medicaments and biological substances; Z79.899 Other long term (current) drug therapy; Z88.6 Allergy status to analgesic agent; Y83.8 Other surgical procedures as the cause of abnormal reaction of the patient, or of later complication, without mention of misadventure at the time of the procedure; Y92.89 Other specified places as the place of occurrence of the external cause; I25.2 Old myocardial infarction

== ENCOUNTER → 2020-01-11 | Outpatient (CLI) | payer MEDICARE ==
[~2020-01-11] MED LIST changes: +FIBER CHOICE C1.5 G1 PO; +IMDUR 30 MG TAB30 M1 PO; +MAG GLYCINATE100 MG PO; +PROBIOTIC1 EAC1 PO; +STOOL SOFT-STI1 EACH PO
--- NOTE | 2020-01-16 14:56 | CARDNUC ---
[place] [address] CARDIAC NUCLEAR IMAGING REPORT Name: ROXYALFREDA M Room: [facility]#: [id number] Admission: 01/11/20 Attend Phys: Shani Batista, Discharge: Date of : 31 Date of Service: 01/16/20 1456 Report #: [id number] THIS REPORT FOR: cc: Bryan Ford MD, Bruce D. MD Park, Jin S. MD ~ APPROVED REPORT Study performed: 01/11/2020 14:48:14 Indication: Pre-Operative CV evaluation Patient Location: Out-Patient Stress Tech: Julia Reyes Stress Nurse: Tanya Draper RN Ht: 5 ft 4 in Wt: 141 lbs BSA: 1.69 m2 BMI: 24.20 Medical History Medical History: CAD s/p [place], Cardiomyopathy, CHF, HTN, Hyperlipidemia Medications: asa 81, clopidogrel imdur Allergies: multiple Cardiac Risk Factors: Age, HTN, Hyperlipidemia, PVD Previous Cardiac Procedures: PCI, Myocardial infarction Exercise History: Indeterminate Meds Held (24 hrs): imdur Resting Data Rest SPECT myocardial perfusion imaging was performed in supine position 30 minutes following the intravenous injection of 9.5 mCi of Tc-99m Sestamibi. Time of rest injection: 13:15 The images were gated to evaluate regional wall motion and calculate left ventricular ejection fraction. Administration Route: IV Administration Site: Left AC Pharmacologic Stress Pharmacologic stress test was performed by injecting Regadenoson 0.4 mg IV push over 10-15 seconds immediately followed by the intravenous injection of 31.4 mCi of Tc-99m Sestamibi. Time of stress injection: 14:38 Administration Route: [place] [address] CARDIAC NUCLEAR IMAGING REPORT Name: ALFREDA RAMSEY Room: [facility]#: [id number] Admission: 01/11/20 Attend Phys: Shani Batista, Discharge: Date of : 31 Date of Service: 01/16/20 1456 Report #: [id number] Administration Site: Left AC Heart Rate at time of stress injection: 94 bpm. Gated Stress SPECT was performed 45 minutes after stress injection. The images were gated to evaluate regional wall motion and calculate left ventricular ejection fraction. Stress Test Details Stress Test: Pharmacologic stress testing performed using 0.4 mg of regadenoson per 5 mL given IV over 10 seconds. HR Max Heart Rate (APMHR): 132 bpm Resting HR: 69 bpm Target HR (85% APMHR): 112 bpm Max HR Achieved: 95 bpm % of APMHR: 71 Recovery HR: 77 bpm BP Resting BP: 177/95 mmHg Max BP: 150/80 mmHg Recovery BP: 164/85 mmHg ECG Resting ECG: Sinus Rhythm Stress ECG: Sinus Rhythm ST Change: Non-ischemic Clinical Reason for Termination: Completed protocol Nurse Comments pt walks with cane and is unable to walk on treadmill Study Quality Study: Good Study Data Post stress, the left ventricular ejection was 39%.. Perfusion There is a medium area of moderately reduced uptake in the mid and apical segment of the anterior wall which is seen on the stress images as well as the resting images. This area is hypokinetic and is most consistent with [place] [address] CARDIAC NUCLEAR IMAGING REPORT Name: ALFREDA RAMSEY Room: [facility]#: [id number] Admission: 01/11/20 Attend Phys: Shani aBtista, Discharge: Date of : 31 Date of Service: 01/16/20 1456 Report #: [id number] Moderately decreased left ventricular systolic function. Nuclear Conclusion ECG Findings: negative for ischemia Clinical Findings: non-diagnostic Nuclear Findings: positive for infarct Exercise Capacity: not assessed Left Ventricular Function: abnormal There is a fixed defect in the mid to apical anterior wall, consistent with infarct. There is moderate segmental LV dysfunction. <ELECTRONICALLY SIGNED> By: Maxim Trejo MD 01/16/20 1456 145 1456 Maxim Trejo MD /MONROE
== END ==
LOC: M.NUC 12-31 16:28
PROVIDERS: ATTEND Nurse Practitioner
DX: Z01.810 Encounter for preprocedural cardiovascular examination (principal); I25.118 Atherosclerotic heart disease of native coronary artery with other forms of angina pectoris

== ENCOUNTER 2020-03-13 14:09 | Observation (INO) | payer MEDICARE ==
[~2020-03-13] VITALS: Ht 165.1 cm; Wt 64.9 kg
[2020-03-13 14:35] VITALS: BP 108/72
[2020-03-13] MEDS ORDERED: LUTEIN20 MG PO (14:46)
[2020-03-13 15:39] LABS: ABSOLUTE BASOPHILS 0.1 thou/uL (0.0-0.2); ABSOLUTE EOSINOPHILS 0.4 thou/uL (0.0-0.7); ABSOLUTE LYMPHOCYTES 1.3 thou/uL (0.8-5.3); ABSOLUTE MONOCYTES 0.4 thou/uL (0.0-1.2); ABSOLUTE NEUTROPHILS 5.4 thou/uL (1.6-8.1); BASOPHILS 0.9 %; EOSINOPHILS 4.9 %; HEMATOCRIT 33.6 % (37.0-47.0); HEMOGLOBIN 11.1 gm/dL (12.0-15.0); LYMPHOCYTES 17.3 %; MCH 30.7 pg (26.0-34.0); MONOCYTES 5.8 %; NUCLEATED RBCS 0 /100WBC; PLATELET COUNT* 395 thou/uL (150-400); POLYS 71.1 %; RBC 3.61 mil/uL (4.20-5.00); RDW-CV 14.7 % (10.5-14.5); WBC 7.6 thou/uL (4.0-11.0)
[2020-03-13 15:44] LABS: CALCIUM 8.6 mg/dL (8.5-10.1); CREATININE 1.1 mg/dL (0.6-1.3); POTASSIUM 4.5 mmol/L (3.5-5.1)
[2020-03-13 15:47] LABS: APTT 25.6 Seconds (25.0-31.3); PROTIME 10.9 Seconds (9.20-11.50)
[2020-03-13 15:55] LABS: ALBUMIN 3.2 g/dL (3.4-5.0); TOTAL BILIRUBIN 0.6 mg/dL (<0.1-1.0); TOTAL PROTEIN 6.1 g/dL (6.4-8.2)
[2020-03-13 20:02] VITALS: BP 144/60
[2020-03-13 21:00] VITALS: BP 117/83
[2020-03-14 00:27] VITALS: BP 119/58
[2020-03-14 04:55] LABS: ANION GAP 5 mmol/L (7-16); BUN 11 mg/dL (7-18); CHLORIDE 108 mmol/L (98-107); CO2 28 mmol/L (21-32); GLUCOSE 84 mg/dL (70-99); POTASSIUM 3.9 mmol/L (3.5-5.1); SODIUM 141 mmol/L (136-145)
[2020-03-14 05:00] LABS: CHOLESTEROL 207 mg/dL (<200); HDL CHOLESTEROL 52 mg/dL (>40); LDL CHOLESTEROL 128 mg/dL (<100); MAGNESIUM 2.5 mg/dL (1.8-2.4); TRIGLYCERIDE 137 mg/dL (<150); VLDL 27 mg/dL (<40)
[2020-03-14 05:11] LABS: SERUM ASSESSMENT CLEAR
[2020-03-14 05:16] VITALS: BP 149/69
[2020-03-14 07:30] VITALS: BP 153/70
[2020-03-14] MEDS ORDERED: VENTOLIN HFA INH8 GM INH (09:16)
[2020-03-14] MEDS ORDERED: PREDNISONE 20 M20 MG PO (09:16)
[2020-03-14 11:34] VITALS: BP 153/70
--- NOTE | 2020-03-14 17:59 | EKG ---
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: CCD : 1930 Requested By: Douglas Cheatham Order Number: [id number] MD: Rm Rodriguez Measurements Intervals [place] Rate: 68 P: 58 MD: 273 QRS: -1 QRSD: 111 T: 74 QT: 427 QTc: 455 Interpretive Statements Sinus rhythm Prolonged MD interval Consider inferior infarct Anterior infarct, old Compared to ECG 07/05/2017 08:31:33 Sinus arrhythmia no longer present Atrial premature complex(es) no longer present Myocardial infarct finding still present Electronically Signed On 03-14-2020 17:59:23 ENROLLMENT CLERK by Rm Rodriguez [email or web address] <ELECTRONICALLY SIGNED> By: Rm Rodriguez MD, FACC 03/14/20 1759 1521 1521 Rm Rodriguez MD, FAC /EPI
== END 2020-03-14 12:38 | disposition home or self-care (01) ==
LOC: M.ERS 14:09 → M.TBA-ER 17:43 → M.2W 17:43
PROVIDERS: Emergency Medicine; ADMIT Internal Medicine; ATTEND Internal Medicine
DX: J44.1 Chronic obstructive pulmonary disease with (acute) exacerbation (principal); E03.9 Hypothyroidism, unspecified; M79.7 Fibromyalgia; M19.90 Unspecified osteoarthritis, unspecified site; I25.10 Atherosclerotic heart disease of native coronary artery without angina pectoris; E44.1 Mild protein-calorie malnutrition; N18.30 Chronic kidney disease, stage 3 unspecified; I50.22 Chronic systolic (congestive) heart failure; Z79.899 Other long term (current) drug therapy; Z20.828 Contact with and (suspected) exposure to other viral communicable diseases